=== PATIENT | male | born 1955 | race Caucasian/White ===

== ENCOUNTER → 2016-12-29 | Outpatient (CLI) | payer BC ==
[2016-12-29 12:20] LABS: ALT 40 U/L (21-72); AST 30 U/L (17-59); Cholesterol 164 mg/dL (<200); HDL Cholesterol 53 mg/dL (40-60)
== END | disposition home or self-care (01) ==
LOC: LABWHC1 11:18
PROVIDERS: ATTEND Internal Medicine Cardiovascular Disease
DX: E78.2 Mixed hyperlipidemia (principal)
CPT/HCPCS: 36415; 80061; 84450; 84460

== ENCOUNTER 2017-08-09 08:37 | Emergency (ER) | payer BC ==
[2017-08-09 08:50] VITALS: RESP 18
[2017-08-09] MEDS ORDERED: ONDANSETRON 4 MG/2 ML VIAL IVP STA (09:28)
[2017-08-09] MEDS ORDERED: KETOROLAC 30 MG/ML 1 ML VIAL IVP STA (09:28)
[2017-08-09] MEDS ORDERED: MORPHINE SULFATE 4 MG/ML SYRINGE IVP STA (09:28)
[2017-08-09 09:38] LABS: Basophils % (A) 0 %; Eosinophils % (A) 0 %; HCT 43.6 % (39.0-53.0); HGB 14.5 gm/dL (13.0-17.5); Lymphocytes # (A) 0.8 k/uL (1.0-4.8); Lymphocytes % (A) 7 %; MCH 31.5 pg (25.0-35.0); MCHC 33.2 g/dL (31.0-37.0); Mean Platelet Volume 6.8; Monocytes # (A) 0.6 k/uL (0-1.0); Monocytes % (A) 6 %; Neutrophils # (A) 8.9 k/uL (1.3-7.7); Neutrophils % (A) 85 %; Platelet Count 264 k/uL (150-450); RBC 4.59 m/uL (4.30-5.90); RDW 13.4 % (11.5-15.5); WBC 10.4 k/uL (3.8-10.6)
[2017-08-09 09:44] LABS: Appearance,Urine Turbid (Clear); Bilirubin,Urine Negative (Negative); Blood,Urine Large (Negative); Color,Urine Yellow; Glucose,Urine (UA) Negative (Negative); Ketones,Urine Negative (Negative); Leukocyte Esterase,Urine Negative (Negative); Mucus,Urine Many /hpf; Nitrite,Urine Negative (Negative); PH, Urine 5.5 (5.0-8.0); Protein,Urine 1+ (Negative); RBC,Urine 96 /hpf (0-5); Specific Gravity,Urine 1.029 (1.001-1.035); Urobilinogen,Urine <2.0 mg/dL (<2.0); WBC,Urine 8 /hpf (0-5)
[2017-08-09 09:48] LABS: ALT 34 U/L (21-72); AST 29 U/L (17-59); Albumin 4.4 g/dL (3.5-5.0); Alkaline Phosphatase 59 U/L (38-126); Amylase 76 U/L (30-110); Anion Gap 14 mmol/L; Blood Urea Nitrogen 17 mg/dL (9-20); Calcium 9.6 mg/dL (8.4-10.2); Carbon Dioxide 23 mmol/L (22-30); Chloride 103 mmol/L (98-107); Glucose 151 mg/dL (74-99); Lipase 150 U/L (23-300); Potassium 4.7 mmol/L (3.5-5.1); Sodium 140 mmol/L (137-145); Total Bilirubin 0.5 mg/dL (0.2-1.3); Total Protein 7.1 g/dL (6.3-8.2)
--- NOTE | 2017-08-09 10:00 | ED ---
Back Pain HPI - General Chief Complaint: Back Pain/Injury Stated Complaint: Abd Pain Time Seen by Provider: 08/09/17 09:15 Source: patient, RN notes reviewed, old records reviewed Limitations: no limitations - History of Present Illness Initial Comments: Pt is a 62 year old male with hematuria, left kidney pain, and nausea since yesterday. Patient has history of kidney stones, pain feels similar. Denies Fever chills. Denies dysuria. Reports if you episodes vomiting. No diarrhea. - Related Data Home Medications Medication Instructions Recorded Confirmed Aspirin [Adult Low Dose Aspirin EC] 81 mg PO HS 08/09/15 08/09/17 Atorvastatin [Lipitor] 10 mg PO HS 08/09/15 08/09/17 Multivitamins, Thera [Multivitamin] 1 tab PO HS 08/09/15 08/09/17 B,C/Folic/Zinc/Copper Ox/Vit E 1 tab PO HS 08/09/17 08/09/17 [Stress B-Complex Tablet] Cholecalciferol [Vitamin D3] 1,000 unit PO HS 08/09/17 08/09/17 Doxepin [SINEquan] 10 mg PO HS 08/09/17 08/09/17 Fish Oil/Dha/Epa [Fish Oil 1,200 1 cap PO BID 08/09/17 08/09/17 mg Fish Oil] Saji (Supplement) 1 tab PO HS 08/09/17 08/09/17 Magnesium Oxide [Mag-Ox] 250 mg PO HS 08/09/17 08/09/17 Psyllium Husk 100% [Metamucil 6 gm PO HS 08/09/17 08/09/17 Packet] Tadalafil [Cialis] 5 mg PO HS 08/09/17 08/09/17 Previous Rx's Medication Instructions Recorded HYDROcodone/APAP 5-325MG [Bridger 1 tab PO Q4HR PRN 3 Days #18 tab 08/09/17 5-325] Ketorolac [Toradol] 10 mg PO Q6HR #15 tab 08/09/17 Ondansetron [Zofran] 4 mg PO Q8HR PRN #15 tab 08/09/17 Tamsulosin [Flomax] 0.4 mg PO DAILY #10 cap 08/09/17 Allergies Allergy/AdvReac Type Severity Reaction Status Date / Time No Known Allergies Allergy Verified 08/09/17 09:24 Review of Systems ROS Statement: Those systems with pertinent positive or pertinent negative responses have been documented in the HPI. ROS Other: All systems not noted in ROS Statement are negative. Past Medical History Past Medical History: Hyperlipidemia, Mitral Valve Prolapse (MVP) Additional Past Medical History / Comment(s): hx migraines, hx heart murmer, abdominal pain, hx ulcer 15 yrs ago, kidney stones History of Any Multi-Drug Resistant Organisms: None Reported Past Surgical History: Cardiac Ablation, Orthopedic Surgery Additional Past Surgical History / Comment(s): Mitral valve repair and hole repaired, rt knee surgery Past Anesthesia/Blood Transfusion Reactions: No Reported Reaction Past Psychological History: No Psychological Hx Reported Smoking Status: Never smoker Past Alcohol Use History: None Reported Past Drug Use History: None Reported - Past Family History Father Family Medical History: Cancer Additional Family Medical History / Comment(s): pancreatic Sister(s) Family Medical History: Cancer Additional Family Medical History / Comment(s): breast General Exam - General Exam Comments Initial Comments: This is a 62 year old male, moderate discomfort. Limitations: no limitations Head exam: Present: atraumatic, normocephalic, normal inspection Eye exam: Present: normal appearance, PERRL, EOMI. Absent: scleral icterus, conjunctival injection, periorbital swelling ENT exam: Present: normal exam, mucous membranes moist Neck exam: Present: normal inspection. Absent: tenderness, meningismus, lymphadenopathy Respiratory exam: Present: normal lung sounds bilaterally. Absent: respiratory distress, wheezes, rales, rhonchi, stridor Cardiovascular Exam: Present: regular rate, normal rhythm, normal heart sounds. Absent: systolic murmur, diastolic murmur, rubs, gallop, clicks GI/Abdominal exam: Present: soft, normal bowel sounds. Absent: distended, tenderness, guarding, rebound, rigid Back exam: Present: CVA tenderness (L) Neurological exam: Present: alert, oriented X3, CN II-XII intact Skin exam: Present: warm, dry, intact, normal color. Absent: rash Course Vital Signs 08/09/17 08/09/17 08:48 11:25 Temperature 97.4 F L 97 F L Pulse Rate 54 L 78 Respiratory 18 18 Rate Blood Pressure 115/81 124/76 O2 Sat by Pulse 97 98 Oximetry Medical Decision Making - Medical Decision Making 62 year old male with left CVA tenderness, hematuria for [address] shows 3mm stone.Given IV fluids and pain meds, and resting comfortably. Will DC with pain meds and ureteral stone regimen. Discussed Urology follow up and return parameters discussed. - Lab Data Result diagrams: 08/09/17 09:00 08/09/17 09:00 Lab Results 08/09/17 08/09/17 08/09/17 Range/Units 09:00 09:00 09:00 WBC 10.4 (3.8-10.6) k/uL RBC 4.59 (4.30-5.90) m/uL Hgb 14.5 (13.0-17.5) gm/dL Hct 43.6 (39.0-53.0) % MCV 95.0 (80.0-100.0) fL MCH 31.5 (25.0-35.0) pg MCHC 33.2 (31.0-37.0) g/dL RDW 13.4 (11.5-15.5) % Plt Count 264 (150-450) k/uL Neutrophils % 85 % Lymphocytes % 7 % Monocytes % 6 % Eosinophils % 0 % Basophils % 0 % Neutrophils # 8.9 H (1.3-7.7) k/uL Lymphocytes # 0.8 L (1.0-4.8) k/uL Monocytes # 0.6 (0-1.0) k/uL Eosinophils # 0.0 (0-0.7) k/uL Basophils # 0.0 (0-0.2) k/uL Sodium 140 (137-145) mmol/L Potassium 4.7 (3.5-5.1) mmol/L Chloride 103 (98-107) mmol/L Carbon Dioxide 23 (22-30) mmol/L Anion Gap 14 mmol/L BUN 17 (9-20) mg/dL Creatinine 0.90 (0.66-1.25) mg/dL Est GFR (CKD-EPI)AfAm >90 (>60 ml/min/1.73 sqM) Est GFR (CKD-EPI)NonAf >90 (>60 ml/min/1.73 sqM) Glucose 151 H (74-99) mg/dL Calcium 9.6 (8.4-10.2) mg/dL Total Bilirubin 0.5 (0.2-1.3) mg/dL AST 29 (17-59) U/L ALT 34 (21-72) U/L Alkaline Phosphatase 59 (38-126) U/L Total Protein 7.1 (6.3-8.2) g/dL Albumin 4.4 (3.5-5.0) g/dL Amylase 76 (30-110) U/L Lipase 150 (23-300) U/L Urine Color Yellow Urine Appearance Turbid (Clear) Urine pH 5.5 (5.0-8.0) Ur Specific [place] 1.029 (1.001-1.035) Urine Protein 1+ H (Negative) Urine Glucose (UA) Negative (Negative) Urine Ketones Negative (Negative) Urine Blood Large H (Negative) Urine Nitrite Negative (Negative) Urine Bilirubin Negative (Negative) Urine Urobilinogen <2.0 (<2.0) mg/dL Ur Leukocyte Esterase Negative (Negative) Urine RBC 96 H (0-5) /hpf Urine WBC 8 H (0-5) /hpf Urine Mucus Many H (None) /hpf - Radiology Data Radiology results: report reviewed left uvj calculus resulting in mild left hydroureteronephrosis, cholelithiasis, Left kidney lesion, stable. KUB shows distl left ureteral calculus. Disposition Clinical Impression: Left ureteral stone Disposition: HOME SELF-CARE Condition: Good Instructions: Ureteral Stones (ED) Additional Instructions: Patient is advised to increase fluid intake. Take the medications as prescribed. Follow-up with urology. Return to the emergency department if any alarming signs or symptoms occur. Prescriptions: HYDROcodone/APAP 5-325MG [Bridger 5-325] 1 tab PO Q4HR PRN 3 Days #18 tab PRN Reason: Pain Ketorolac [Toradol] 10 mg PO Q6HR #15 tab Ondansetron [Zofran] 4 mg PO Q8HR PRN #15 tab PRN Reason: Nausea Tamsulosin [Flomax] 0.4 mg PO DAILY #10 cap Is patient prescribed a controlled substance at d/c from ED?: Yes When asked, does pt state using other controlled substances?: No If prescribed controlled substance>3 days was MAPS reviewed?: No Referrals: Conrad Erazo MD [Primary Care Provider] - 1-2 days Deondre De La Fuente MD [STAFF PHYSICIAN] - 1-2 days Time of Disposition: 10:53
--- NOTE | 2017-08-09 10:10 | XR ---
Abdomen HISTORY: Left flank pain Frontal view the abdomen submitted on 2 images correlated prior abdomen 11/17/2010, CT abdomen pelvis 12/04/2010 Lung bases are clear. There is no evident pneumoperitoneum or bowel obstruction. Postop changes are n oted chest, there is a spinal curvature. Bone mineralization is maintained. Probable vascular calcifi cations are present within the pelvis. Difficult to exclude a distal left ureteral calculus. IMPRESSION: Difficult to exclude distal left ureteral calculus.
--- NOTE | 2017-08-09 10:18 | CT ---
EXAMINATION TYPE: CT abdomen pelvis wo con DATE OF EXAM: 08/09/2017 COMPARISON: 12/04/2010 HISTORY: Left sided flank pain with hematuria. CT DLP: 446.3 mGycm Examination of the solid and hollow viscera is limited given the lack of contrast. FINDINGS: LUNG BASES: No evidence for nodule. No evidence for infiltrate. LIVER/GB: Small gallstone is present.. No space-occupying hepatic lesion. PANCREAS: No pancreatic mass identified. No inflammatory process seen. SPLEEN: No evidence for splenomegaly. No intrasplenic lesions seen. ADRENALS: No adrenal nodules identified. No evidence for thickening. KIDNEYS: 3 mm left UVJ calculus resulting in mild left-sided hydroureteronephrosis. There is mild lef t renal edema. No additional renal calculi seen. Small subcentimeter nonspecific hyperdense nodule up per pole left kidney stable relative to the prior study. BOWEL: Appendix has a normal appearance. No evidence of bowel obstruction. No inflammatory process. D iverticulosis sigmoid colon without diverticulitis. Lymph nodes: No evidence for adenopathy greater than 1 cm. Abdominal aorta: Atheromatous changes seen. No evidence for aneurysm. Genital organs: No significant abnormality. Other: Fat-containing inguinal hernias. IMPRESSION: 1. Left UVJ calculus resulting in mild left-sided hydroureteronephrosis. 2. Uncomplicated cholelithiasis. 3. Stable small subcentimeter hyperdense lesion upper pole left kidney.
[2017-08-09] MEDS ORDERED: TAMSULOSIN 0.4 MG CAP.ER.24H PO STA (10:53)
[2017-08-09 11:26] VITALS: BP 124/76; PULSE 78; TEMP 97
== END 2017-08-09 11:27 | disposition home or self-care (01) ==
LOC: EC 08:37
DX: N20.1 Calculus of ureter (principal); Z79.899 Other long term (current) drug therapy; Z79.82 Long term (current) use of aspirin
CPT/HCPCS: 36415; 80053; 82150; 83690; 85025; 81001; 87086; 74018; 74176; 99284; 96374; 96375 ×2; J2270; J2405; J1885

== ENCOUNTER 2019-10-23 18:27 | Observation (INO) | payer BC ==
--- NOTE | 2019-10-23 19:06 | ED ---
Chest Pain HPI - General Chief Complaint: Chest Pain Stated Complaint: Chest Pain Source: patient Mode of arrival: ambulatory Limitations: no limitations - History of Present Illness Initial Comments: Patient is a 64 year old male with past history of mitral valve prolapse, status post repair, precipitating presents emergency Department with reported chest pain. Patient reports symptoms have been intermittent for the past [address] had approximately 5 episodes today. He feels like his heart races, gets diaphoretic and nauseated with a pressure sensation in his chest. Patient denies any recent medication changes. No previous history of [place] or dysrhythmia. He sees Dr. Peoples in office every 6 months. Reports his last echo was normal. Patient denies ripping or tearing sensation to his back. No new medication changes. Reports he drinks 2 cups of coffee daily. Denies fevers or chills. No vomiting. Denies unilateral numbness or weakness. No other alleviating, precipitating modifying factors - Related Data Home Medications Medication Instructions Recorded Confirmed Aspirin [Adult Low Dose Aspirin EC] 81 mg PO HS 08/09/15 10/23/19 Atorvastatin [Lipitor] 10 mg PO HS 08/09/15 10/23/19 Tadalafil [Cialis] 5 mg PO HS 08/09/17 10/23/19 Allergies Allergy/AdvReac Type Severity Reaction Status Date / Time No Known Allergies Allergy Verified 10/23/19 22:02 Review of Systems ROS Statement: Those systems with pertinent positive or pertinent negative responses have been documented in the HPI. ROS Other: All systems not noted in ROS Statement are negative. EKG Findings - EKG Comments: EKG Findings:: EKG demonstrates a sinus rhythm with ventricular rate of 63. AL interval 168. QRS 92. QTC of 417. No acute ST segment elevation or depressions concerning for ischemic changes Past Medical History Past Medical History: Hyperlipidemia, Mitral Valve Prolapse (MVP) Additional Past Medical History / Comment(s): hx migraines, hx heart murmer, abdominal pain, hx ulcer 15 yrs ago, kidney stones History of Any Multi-Drug Resistant Organisms: None Reported Past Surgical History: Cardiac Ablation, Hernia Repair, Orthopedic Surgery Additional Past Surgical History / Comment(s): Mitral valve repair and hole repaired, rt knee surgery Past Anesthesia/Blood Transfusion Reactions: No Reported Reaction Past Psychological History: No Psychological Hx Reported Smoking Status: Never smoker Past Alcohol Use History: None Reported Past Drug Use History: None Reported - Past Family History Father Family Medical History: Cancer Additional Family Medical History / Comment(s): pancreatic Sister(s) Family Medical History: Cancer Additional Family Medical History / Comment(s): breast General Exam Limitations: no limitations Course Vital Signs 10/23/19 10/23/19 10/23/19 18:28 19:07 19:19 Temperature 98.2 F Pulse Rate 67 63 Pulse Rate [ 61 Cat Hooker ] Respiratory 16 16 16 Rate Blood Pressure 155/82 131/75 O2 Sat by Pulse 98 99 Oximetry 10/23/19 10/23/19 20:35 22:01 Temperature 97.4 F L Pulse Rate 59 L 59 L Pulse Rate [ Cat Hooker ] Respiratory 16 16 Rate Blood Pressure 132/71 136/73 O2 Sat by Pulse 100 98 Oximetry Chest Pain MDM - MDM Upon arrival the patient is placed into room 4. A thorough history and physical exam was performed. Laboratory studies were conducted. Pelvic EKG was performed. Patient remains on continuous pulse ox and cardiac monitoring. Laboratory studies are unremarkable. Troponin is negative. TSH is 10.3 while free T4 is normal. Chest x-ray demonstrates no active cardio primary disease. I did discuss diagnosis, differential treatment options. Recommend hospital admission in order to trend the patient's troponins and remain on telemetry monitoring. Patient did agree to this. I discussed the case with Dr. Metzger who accepted admission for the patient. I will consult cardiology. Patient remained in stable condition awaiting bed on the floor Disposition Clinical Impression: Chest pain Disposition: ADMITTED IP TO THIS HOSP Condition: Stable Is patient prescribed a controlled substance at d/c from ED?: No Decision to Admit Reason: Admit from EC Decision Date: 10/23/19 Decision Time: 21:45
[2019-10-23 19:37] LABS: Basophils % (A) 0 %; Eosinophils # (A) 0.1 k/uL (0-0.7); Eosinophils % (A) 2 %; HCT 41.7 % (39.0-53.0); HGB 13.8 gm/dL (13.0-17.5); Lymphocytes # (A) 1.2 k/uL (1.0-4.8); Lymphocytes % (A) 22 %; MCH 31.6 pg (25.0-35.0); MCHC 33.2 g/dL (31.0-37.0); MCV 95.2 fL (80.0-100.0); Mean Platelet Volume 6.8; Monocytes # (A) 0.5 k/uL (0-1.0); Monocytes % (A) 8 %; Neutrophils # (A) 3.6 k/uL (1.3-7.7); Neutrophils % (A) 65 %; Platelet Count 240 k/uL (150-450); RBC 4.38 m/uL (4.30-5.90); RDW 13.7 % (11.5-15.5); WBC 5.6 k/uL (3.8-10.6)
--- NOTE | 2019-10-23 19:40 | XR ---
EXAMINATION TYPE: XR chest 2V DATE OF EXAM: 10/23/2019 COMPARISON: NONE HISTORY: Chest pain TECHNIQUE: 2 views FINDINGS: Heart is normal. Lungs are clear of consolidation. There are no hilar masses. There are char st leads. There are sternal wires. Costophrenic angles are clear. IMPRESSION: No active cardiopulmonary disease. Normal heart.
[2019-10-23 19:44] LABS: ALT 16 U/L (4-49); AST 24 U/L (17-59); African American GFR (CKD) >90 (>60 ml/min/1.73 sqM); Albumin 4.1 g/dL (3.5-5.0); Alkaline Phosphatase 67 U/L (38-126); Anion Gap 7 mmol/L; Blood Urea Nitrogen 13 mg/dL (9-20); Calcium 9.2 mg/dL (8.4-10.2); Carbon Dioxide 25 mmol/L (22-30); Chloride 104 mmol/L (98-107); Glucose 96 mg/dL (74-99); Magnesium 2.1 mg/dL (1.6-2.3); Non-African American GFR(CKD) >90 (>60 ml/min/1.73 sqM); Sodium 136 mmol/L (137-145); Total Bilirubin 0.6 mg/dL (0.2-1.3); Total Protein 6.6 g/dL (6.3-8.2)
[2019-10-23 19:50] LABS: Partial Thromboplastin Time 25.1 sec (22.0-30.0); Prothrombin Time 10.4 sec (9.0-12.0)
[2019-10-23 21:02] LABS: T4, Free (Free Thyroxine) 0.91 ng/dL (0.78-2.19)
[2019-10-23] MEDS ORDERED: NALOXONE 0.4 MG/ML 1 ML VIAL IV PRN (21:46)
[2019-10-23] MEDS ORDERED: ASPIRIN 325 MG TAB PO STA (21:50)
[2019-10-24 02:59] LABS: Basophils % (A) 0 %; Eosinophils # (A) 0.1 k/uL (0-0.7); Eosinophils % (A) 2 %; HCT 41.2 % (39.0-53.0); HGB 13.3 gm/dL (13.0-17.5); Lymphocytes # (A) 1.3 k/uL (1.0-4.8); Lymphocytes % (A) 25 %; MCH 31.4 pg (25.0-35.0); MCHC 32.3 g/dL (31.0-37.0); MCV 97.2 fL (80.0-100.0); Mean Platelet Volume 7.1; Monocytes # (A) 0.5 k/uL (0-1.0); Monocytes % (A) 9 %; Neutrophils # (A) 3.1 k/uL (1.3-7.7); Neutrophils % (A) 61 %; Platelet Count 224 k/uL (150-450); RBC 4.24 m/uL (4.30-5.90); RDW 13.7 % (11.5-15.5); WBC 5.1 k/uL (3.8-10.6)
[2019-10-24 03:12] LABS: African American GFR (CKD) >90 (>60 ml/min/1.73 sqM); Anion Gap 5 mmol/L; Blood Urea Nitrogen 12 mg/dL (9-20); Calcium 8.9 mg/dL (8.4-10.2); Carbon Dioxide 28 mmol/L (22-30); Chloride 106 mmol/L (98-107); Glucose 95 mg/dL (74-99); Non-African American GFR(CKD) >90 (>60 ml/min/1.73 sqM); Potassium 4.1 mmol/L (3.5-5.1); Sodium 139 mmol/L (137-145)
[2019-10-24 05:25] VITALS: RESP 16
[2019-10-24 10:03] VITALS: BP 140/77; PULSE 50; TEMP 97.7
[2019-10-24] MEDS ORDERED: ASPIRIN 81 MG PO SCH ×2 (11:45→21:00)
--- NOTE | 2019-10-24 12:53 | P.CRDCN ---
History of Present Illness History of present illness: HISTORY OF PRESENTING ILLNESS This is a pleasant 64-year-old male past medical history significant for mitral valve prolapse status post repair at [facility], dyslipidemia and gastroesophageal reflux disease. He follows in the office with Dr. Schneider. We have been asked to see in consultation for chest pain. He states for the previous 3-4 days he has been experiencing a discomfort in the left precordial region described as sometimes sharp in nature other times tight. He also notices transient discomfort or heaviness in the left arm. He was tolerating this discomfort at home until yesterday when he had some associated lightheadedness. He denies shortness of breath, palpitations, nausea, vomiting or diaphoresis. He is currently chest pain-free. DIAGNOSTICS EKG reveals sinus mechanism with no acute ST or T wave abnormalities noted. Chest xray negative for any acute cardiopulmonary process. Laboratory reviewed, CBC unremarkable, sodium 139, potassium 4.1, creatinine 0.83, magnesium 2.1, TSH 10.3, free T4 0.91, cardiac enzymes negative 3. Current cardiac medications include atorvastatin 10 mg daily and aspirin 81 mg daily. REVIEW OF SYSTEMS At the time of my exam: CONSTITUTIONAL: Denies fever or chills. CARDIOVASCULAR: Denies chest pain, shortness of breath, orthopnea, PND or palpitations. RESPIRATORY: Denies cough. GASTROINTESTINAL: Denies abdominal pain, diarrhea, constipation, nausea or vomiting. MUSCULOSKELETAL: Denies myalgias. NEUROLOGIC: Denies numbness, tingling or weakness. ENDOCRINE: Denies fatigue, weight change, polydipsia or polyurina. GENITOURINARY: Denies burning, hematuria or urgency with micturation. HEMATOLOGIC: Denies history of anemia or bleeding. PHYSICAL EXAMINATION Blood pressure 140/77 heart rate 55 afebrile and maintaining oxygen saturation on room air. CONSTITUTIONAL: No apparent distress. HEENT: Head is normocephalic. Pupils are equal, round. Sclerae anicteric. Mucous membranes of the mouth are moist. No JVD. No carotid bruit. CHEST EXAMINATION: Lungs are clear to auscultation. No chest wall tenderness is noted on palpation or with deep breathing. HEART EXAMINATION: Regular rate and rhythm. S1, S2 heard. No murmurs, gallops or rub. ABDOMEN: Soft, nontender. Positive bowel sounds. EXTREMITIES: 2+ peripheral pulses, no lower extremity edema and no calf tenderness. NEUROLOGIC EXAMINATION: Patient is awake, alert and oriented x3. ASSESSMENT Chest pain, atypical for angina. An acute coronary event has been ruled out. History of mitral valve prolapse status post repair in 2005 at [facility] Dyslipidemia PLAN An acute coronary event has been ruled out. Decrease aspirin to 81 mg daily. Proceed with stress echocardiogram to assess her stress induced cardiac ischemia. Stress test is normal he may be discharged from a cardiac perspective, follow-up with Dr. Schneider for further outpatient cardiac work-up as warranted. Thank you kindly for this consultation. Nurse Practitioner note has been reviewed, I agree with a documented findings and plan of care. Patient was seen and examined. Past Medical History Past Medical History: GERD/Reflux, Hyperlipidemia, Mitral Valve Prolapse (MVP) Additional Past Medical History / Comment(s): 2005 mitral valve prolapse/murmur with surgery, pt states over [place]/New Year 2018/2019 he traveled to [place] and came home with a severe respiratory illness/PCP thought possible pneumonia or something more severe but pt recovered fully, small hiatal hernia, past gastric ulcer, benign colon polyps removed, peritonitis, diverticulitis, nephrolithiasis-gets once or twice a year-pt passed stones on his own, rare migraine. History of Any Multi-Drug Resistant Organisms: None Reported Past Surgical History: Cardiac Ablation, Hernia Repair, Orthopedic Surgery Additional Past Surgical History / Comment(s): 2005 mitral valve repair/hole repair [facility]iac ablation-done at [facility], bilateral inguinal hernia repairs, colonoscopy/benign colonoscopy, R knee arthroscopy Past Anesthesia/Blood Transfusion Reactions: No Reported Reaction Smoking Status: Never smoker - Past Family History Father Family Medical History: Cancer Additional Family Medical History / Comment(s): Father from pancreatic cancer. Sister(s) Family Medical History: Cancer Additional Family Medical History / Comment(s): breast Mother Family Medical History: Cancer Additional Family Medical History / Comment(s): Mother of jaw cancer with mets. Medications and Allergies Home Medications Medication Instructions Recorded Confirmed Type Aspirin [Adult Low Dose Aspirin EC] 81 mg PO HS 08/09/15 10/23/19 History Atorvastatin [Lipitor] 10 mg PO HS 08/09/15 10/23/19 History Tadalafil [Cialis] 5 mg PO HS 08/09/17 10/23/19 History Allergies Allergy/AdvReac Type Severity Reaction Status Date / Time No Known Allergies Allergy Verified 10/23/19 22:02 Physical Exam Vitals: Vital Signs Temp Pulse Pulse Pulse Resp BP BP 10/24/19 09:00 50 L 16 10/24/19 08:28 97.7 F 50 L 16 140/77 10/24/19 05:00 97.9 F 56 L 16 135/83 10/23/19 23:37 97 F L 57 L 18 130/77 10/23/19 22:01 97.4 F L 59 L 16 136/73 10/23/19 20:35 59 L 16 132/71 10/23/19 19:19 63 16 131/75 10/23/19 19:07 61 16 10/23/19 18:28 98.2 F 67 16 155/82 Pulse Ox 10/24/19 09:00 10/24/19 08:28 96 10/24/19 05:00 96 10/23/19 23:37 97 10/23/19 22:01 98 10/23/19 20:35 100 10/23/19 19:19 99 10/23/19 19:07 10/23/19 18:28 98 Intake and Output 10/23/19 10/24/19 10/24/19 22:59 06:59 14:59 Other: Voiding Method Toilet Toilet # Voids 2 Weight 88.451 kg 88.451 kg Results 10/24/19 02:44 10/24/19 02:44 Cardiac Enzymes 10/23/19 10/23/19 10/24/19 Range/Units 19:24 19:24 00:23 AST 24 (17-59) U/L Troponin I <0.012 <0.012 (0.000-0.034) ng/mL 10/24/19 Range/Units 02:44 AST (17-59) U/L Troponin I <0.012 (0.000-0.034) ng/mL Coagulation 10/23/19 Range/Units 19:24 PT 10.4 (9.0-12.0) sec APTT 25.1 (22.0-30.0) sec CBC 10/23/19 10/24/19 Range/Units 19:24 02:44 WBC 5.6 5.1 (3.8-10.6) k/uL RBC 4.38 4.24 L (4.30-5.90) m/uL Hgb 13.8 13.3 (13.0-17.5) gm/dL Hct 41.7 41.2 (39.0-53.0) % Plt Count 240 224 (150-450) k/uL Comprehensive Metabolic Panel 10/23/19 10/24/19 Range/Units 19:24 02:44 Sodium 136 L 139 (137-145) mmol/L Potassium 4.0 4.1 (3.5-5.1) mmol/L Chloride 104 106 (98-107) mmol/L Carbon Dioxide 25 28 (22-30) mmol/L BUN 13 12 (9-20) mg/dL Creatinine 0.78 0.83 (0.66-1.25) mg/dL Glucose 96 95 (74-99) mg/dL Calcium 9.2 8.9 (8.4-10.2) mg/dL AST 24 (17-59) U/L ALT 16 (4-49) U/L Alkaline Phosphatase 67 (38-126) U/L Total Protein 6.6 (6.3-8.2) g/dL Albumin 4.1 (3.5-5.0) g/dL Current Medications Generic Name Dose Route Start Last Admin Trade Name Freq PRN Reason Stop Dose Admin Aspirin 81 mg 10/24/19 21:00 Aspirin PO HS RAMONITA Atorvastatin Calcium 10 mg 10/24/19 21:00 Lipitor PO HS RAMONITA Naloxone HCl 0.2 mg 10/23/19 21:46 Narcan IV Q2M PRN Opioid Reversal Intake and Output 10/23/19 10/24/19 10/24/19 22:59 06:59 14:59 Other: Voiding Method Toilet Toilet # Voids 2 Weight 88.451 kg 88.451 kg Patient Weight 10/25/19 06:59 Weight 88.451 kg 10/24/19 02:44 10/24/19 02:44
[2019-10-24 14:25] LABS: Cholesterol 154 mg/dL (<200); HDL Cholesterol 47 mg/dL (40-60); LDL Cholesterol,Calculated 96 mg/dL (0-99); Triglycerides 57 mg/dL (<150)
--- NOTE | 2019-10-24 15:25 | ECHOS ---
STRESS ECHOCARDIOGRAM LUMASON: Vial INDICATIONS: Chest pain. MEDICATIONS: BASELINE HEART RATE: 58 BASELINE BLOOD PRESSURE: 142/79 MAXIMUM HEART RATE: 156 MAXIMUM BLOOD PRESSURE: 185/74 85% MPHR: 133 100% MPHR: 157 METS: 11.5 MAXIMUM STAGE REACHED: 4 TOTAL EXERCISE TIME: 10:09 INDICATIONS: History of chest discomfort. Normal cardiac enzymes. History of mitral valve prolapse, status post repair. CLINICAL INFORMATION: Baseline heart rate 58 beats per minute. Baseline blood pressure 142/79 mmHg. Baseline 12-lead ECG shows sinus rhythm with occasional PVCs. Patient exercised on a Jerome protocol for 10 minutes and 9 seconds achieving a peak heart rate of 156 beats per minute. Normal blood pressure response to exercise. There was no ECG evidence for ischemia. Occasional PACs and PVCs continued. No nonsustained or sustained arrhythmias. The baseline 2D echo images showed normal LV size and systolic function without segmental wall motion abnormalities. At peak exercise, there was excellent augmentation of overall LV contractility without development of any wall motion abnormalities. At recovery, regional global LV systolic function remained normal. IMPRESSION: Normal exercise stress echo. MMODL / IJN: [id number] /
--- NOTE | 2019-10-24 19:47 | P.HPIM ---
History of Present Illness H&P Date: 10/24/19 Chief Complaint: Chest pain History of presenting complaint: This is a pleasant 64-year-old patient of Dr. Conrad Erazo. Chronic stable medical conditions include GERD, hyperlipidemia, mitral valve prolapse with surgery. Has chronic kidney stones. Patient presented 5 day history of sharp chest pains. On the left side. Infraclavicular area. Lasting 4-3 minutes. Fundi patient is dizzy lightheaded. Some diaphoresis heart racing. Not related to activity. Typically short-lived. Patient drinks 2 large coffees a day. No other caffeine stimulant. Does not smoke. Cardiology was consulted. No prior cardiac history. Patient otherwise rather active. Review of systems: GEN.: Tired EYES: None HEENT: None NECK: None RESPIRATORY: None CARDIOVASCULAR: As above GASTROINTESTINAL: None GENITOURINARY: None MUSCULOSKELETAL: None LYMPHATICS: None HEMATOLOGICAL: None PSYCHIATRY: None NEUROLOGICAL: None. Past medical history to include: GERD, hyperlipidemia, mitral valve prolapse, severe pneumonia he had an echo, gastric ulcer, benign colon polyps removed, diverticulitis, kidney stones. Cardiac ablation. 2005 and a mitral valve repair and baltazar. With cardiac ablation than at [facility]. Social history: Does not smoke. Alcohol occasionally. Patient is into better treatment [facility]. Lives with significant other Allyn. Physical examination: VITAL SIGNS: 98.2, 67, 16, 155/82, 98% room air GENERAL: BMI 28, laying in bed, comfortable. EYES: Pupils equal. Conjunctiva normal. HEENT: External appearance of nose and ears normal, oral cavity grossly normal. NECK: JVD not raised; masses not palpable. HEART: First and second heart sounds are normal; no edema. LUNGS: Respiratory rate normal; clear to auscultation. ABDOMEN: Soft, nontender, liver spleen not palpable, no masses palpable. PSYCH: Alert and oriented x3; mood and affect normal. NEUROLOGICAL: Cranial nerves grossly intact; no facial asymmetry, power and sensation grossly intact. LYMPHATICS: No lymph nodes palpable in the axilla and neck INVESTIGATIONS, reviewed in the clinical context: White count 5.6 hemoglobin 13.8 platelets 240 potassium 4 creatinine 0.78 Troponin I 3 negative Free T4 0.91 TSH 10.3 LDL 96 EKG tracing personally reviewed by me-normal sinus rhythm Chest x-ray film personally reviewed by me-borderline cardiomegaly Assessment: -This is a patient for last 5 days has episodes lasting up to 3 minutes of sharp pain. The dizziness lightheadedness heart racing. Not related to activity. Strongly suspect this to be laying arrhythmia could be A. fib. Patient had a prior ablation. Underlying coronary ischemia be ruled out. -GERD -Hyperlipidemia -colonic Diverticulosis -Nephrolithiasis Plan: Cardiology was consulted. The planning for stress test. If that is negative patient need an outpatient event monitor. Home medications to be resumed. Care was discussed with this patient has significant other. Questions were answered. Past Medical History Past Medical History: GERD/Reflux, Hyperlipidemia, Mitral Valve Prolapse (MVP) Additional Past Medical History / Comment(s): 2005 mitral valve prolapse/murmur with surgery, pt states over /New Year 2018/2019 he traveled to [place] and came home with a severe respiratory illness/PCP thought pos sible pneumonia or something more severe but pt recovered fully, small hiatal hernia, past gastric ulcer, benign colon polyps removed, peritonitis, diverticulitis, nephrolithiasis-gets once or twice a year-pt passed stones on his own, rare migraine. History of Any Multi-Drug Resistant Organisms: None Reported Past Surgical History: Cardiac Ablation, Hernia Repair, Orthopedic Surgery Additional Past Surgical History / Comment(s): 2005 mitral valve repair/hole [facility] bilateral inguinal hernia repairs, colonoscopy/benign colonoscopy, R knee arthroscopy Past Anesthesia/Blood Transfusion Reactions: No Reported Reaction Smoking Status: Never smoker - Past Family History Father Family Medical History: Cancer Additional Family Medical History / Comment(s): Father from pancreatic cancer. Sister(s) Family Medical History: Cancer Additional Family Medical History / Comment(s): breast Mother Family Medical History: Cancer Additional Family Medical History / Comment(s): Mother of jaw cancer with mets. Medications and Allergies Home Medications Medication Instructions Recorded Confirmed Type Aspirin [Adult Low Dose Aspirin EC] 81 mg PO HS 08/09/15 10/23/19 History Atorvastatin [Lipitor] 10 mg PO HS 08/09/15 10/23/19 History Tadalafil [Cialis] 5 mg PO HS 08/09/17 10/23/19 History Allergies Allergy/AdvReac Type Severity Reaction Status Date / Time No Known Allergies Allergy Verified 10/23/19 22:02 Physical Exam Vitals: Vital Signs Temp Pulse Pulse Pulse Resp BP BP 10/24/19 09:00 50 L 16 10/24/19 08:28 97.7 F 50 L 16 140/77 10/24/19 05:00 97.9 F 56 L 16 135/83 10/23/19 23:37 97 F L 57 L 18 130/77 10/23/19 22:01 97.4 F L 59 L 16 136/73 10/23/19 20:35 59 L 16 132/71 10/23/19 19:19 63 16 131/75 10/23/19 19:07 61 16 10/23/19 18:28 98.2 F 67 16 155/82 Pulse Ox 10/24/19 09:00 10/24/19 08:28 96 10/24/19 05:00 96 10/23/19 23:37 97 10/23/19 22:01 98 10/23/19 20:35 100 10/23/19 19:19 99 10/23/19 19:07 10/23/19 18:28 98 Intake and Output 10/23/19 10/24/19 10/24/19 22:59 06:59 14:59 Other: Voiding Method Toilet Toilet # Voids 2 Weight 88.451 kg 88.451 kg Results CBC & Chem 7: 10/24/19 02:44 10/24/19 02:44 Labs: Abnormal Lab Results - Last 24 Hours (Table) 10/23/19 10/24/19 Range/Units 19:24 02:44 RBC 4.24 L (4.30-5.90) m/uL Sodium 136 L (137-145) mmol/L TSH 10.300 H (0.465-4.680) mIU/L Thrombosis Risk Factor Assmnt - Choose All That Apply Any of the Below Risk Factors Present?: Yes Each Factor Represents 1 point: Obesity (BMI >25) Other Risk Factors: Yes Each Risk Factor Represents 2 Points: Age 61-74 years Other congenital or acquired thrombophilia - If yes, enter type in comment: No Thrombosis Risk Factor Assessment Total Risk Factor Score: 3 Thrombosis Risk Factor Assessment Level: Moderate Risk
--- NOTE | 2019-10-24 19:53 | P.DS ---
Providers Date of admission: 10/23/19 21:46 Expected date of discharge: 10/24/19 Attending physician: Anil Metzger Consults: 10/23/19 21:47 Consult Physician Urgent Consulting Provider: [facility] Consult Reason/Comments: acute chest pain Do you want consulting provider notified?: Yes Primary care physician: Conrad Erazo MD Hospital Course: Chief Complaint: Chest pain History of presenting complaint: This is a pleasant 64-year-old patient of Dr. Conrad Erazo. Chronic stable medical conditions include GERD, hyperlipidemia, mitral valve prolapse with surgery. Has chronic kidney stones. Patient presented 5 day history of sharp chest pains. On the left side. Infraclavicular area. Lasting 4-3 minutes. Fundi patient is dizzy lightheaded. Some diaphoresis heart racing. Not related to activity. Typically short-lived. Patient drinks 2 large coffees a day. No other caffeine stimulant. Does not smoke. Cardiology was consulted. No prior cardiac history. Patient otherwise rather active. Troponins were negative. Stress echocardiogram was negative. Patient is cleared by cardiology to go home. 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 Darren Natarajan Physical examination: VITAL SIGNS: 98.2, 59, 16, 132/71, 100% room air GENERAL: BMI 28, laying in bed, comfortable. EYES: Pupils equal. Conjunctiva normal. HEENT: External appearance of nose and ears normal, oral cavity grossly normal. NECK: JVD not raised; masses not palpable. HEART: First and second heart sounds are normal; no edema. LUNGS: Respiratory rate normal; clear to auscultation. ABDOMEN: Soft, nontender, liver spleen not palpable, no masses palpable. PSYCH: Alert and oriented x3; mood and affect normal. INVESTIGATIONS, reviewed in the clinical context: White count 5.6 hemoglobin 13.8 platelets 240 potassium 4 creatinine 0.78 Troponin I 3 negative Free T4 0.91 TSH 10.3 LDL 96 EKG tracing personally reviewed by me-normal sinus rhythm Chest x-ray film personally reviewed by me-borderline cardiomegaly Stress echocardiogram-negative Assessment: -This is a patient for last 5 days has episodes lasting up to 3 minutes of sharp pain. The dizziness lightheadedness heart racing. Not related to activity. Strongly suspect this to be laying arrhythmia could be A. fib. Patient had a prior ablation. Underlying coronary ischemia be ruled out. -GERD -Hyperlipidemia -colonic Diverticulosis -Nephrolithiasis -Abnormal thyroid function test. Clinically patient is not hypothyroid. Should have repeat LFTs done in 4 weeks' time. Disposition: Home Patient Condition at Discharge: Stable Plan - Discharge Summary Discharge Rx Participant: No New Discharge Prescriptions: No Action Aspirin [Adult Low Dose Aspirin EC] 81 mg PO HS Atorvastatin [Lipitor] 10 mg PO HS Tadalafil [Cialis] 5 mg PO HS Discharge Medication List Aspirin [Adult Low Dose Aspirin EC] 81 mg PO HS 08/09/15 [History] Atorvastatin [Lipitor] 10 mg PO HS 08/09/15 [History] Tadalafil [Cialis] 5 mg PO HS 08/09/17 [History] Follow up Appointment(s)/Referral(s): Conrad Erazo MD [Primary Care Provider] - 1-2 days Elvis Schneider MD [STAFF PHYSICIAN] - 11/07/19 2:45 pm Activity/Diet/Wound Care/Special Instructions: Normal stress echo. Already dictated
[2019-10-24] MEDS ORDERED: ATORVASTATIN 10 MG TAB PO SCH (21:00)
== END 2019-10-24 16:19 ==
LOC: EC 18:27 → 3NCARDOBS 21:46
PROVIDERS: ADMIT Hospitalist; ATTEND Hospitalist
DX: R07.89 Other chest pain (principal); R00.0 Tachycardia, unspecified; R42 Dizziness and giddiness; R61 Generalized hyperhidrosis; R94.6 Abnormal results of thyroid function studies; E78.5 Hyperlipidemia, unspecified; I34.1 Nonrheumatic mitral (valve) prolapse; Z95.4 Presence of other heart-valve replacement; K21.9 Gastro-esophageal reflux disease without esophagitis; K44.9 Diaphragmatic hernia without obstruction or gangrene; K57.30 Diverticulosis of large intestine without perforation or abscess without bleeding; N20.0 Calculus of kidney; G43.909 Migraine, unspecified, not intractable, without status migrainosus; E66.9 Obesity, unspecified; Z68.28 Body mass index [BMI] 28.0-28.9, adult; Z20.828 Contact with and (suspected) exposure to other viral communicable diseases; Z79.82 Long term (current) use of aspirin; Z79.899 Other long term (current) drug therapy; Z87.442 Personal history of urinary calculi; Z86.010 Personal history of colon polyps; Z87.11 Personal history of peptic ulcer disease; Z86.19 Personal history of other infectious and parasitic diseases; Z80.3 Family history of malignant neoplasm of breast; Z80.0 Family history of malignant neoplasm of digestive organs; Z80.8 Family history of malignant neoplasm of other organs or systems
CPT/HCPCS: 99285; 36415; 93005; 93351; 84439; 80061; 80053; 80048; 84443; 83735; 84484 ×2; 85025 ×2; 85610; 85730; 71046; G0378 ×2; U0003

== ENCOUNTER → 2023-03-02 | Outpatient (CLI) | payer BC ==
[2023-03-02 15:52] LABS: ALT 35 U/L (10-49); AST 25 U/L (14-35); Chol/HDL Ratio 2.96 Ratio; LDL Cholesterol,Calculated 81.4 mg/dL (0.0-131.0); VLDL Calculation 12.72 mg/dL (5.00-40.00)
== END | disposition home or self-care (01) ==
LOC: LABWHC1 10:44
PROVIDERS: ATTEND Internal Medicine Cardiovascular Disease
DX: E78.2 Mixed hyperlipidemia (principal)
CPT/HCPCS: 36415; 80061; 84450; 84460

== ENCOUNTER → 2024-06-28 | Outpatient (CLI) | payer MEDICARE ==
[2024-06-28 15:42] LABS: ALT 30 U/L (10-49); AST 24 U/L (14-35); Chol/HDL Ratio 3.61 Ratio; LDL Cholesterol,Calculated 101.9 mg/dL (0.0-131.0); VLDL Calculation 15.92 mg/dL (5.00-40.00)
== END | disposition home or self-care (01) ==
LOC: LABWHC1 09:04
PROVIDERS: ATTEND Internal Medicine Cardiovascular Disease
DX: E78.2 Mixed hyperlipidemia (principal)
CPT/HCPCS: 36415; 80061; 84450; 84460